=== PATIENT | male | born 1940 | race Caucasian/White ===

== ENCOUNTER → 2017-07-08 | Outpatient (CLI) | payer OTHER, BC ==
[~2017-07-08] VITALS: Ht 182.9 cm; Wt 99.8 kg
[~2017-07-08] MED LIST: ACETAMINOPHEN325 M1 PO; ASPIRIN EC325 M1 PO; ASPIRIN81 M2 PO; B-121000 MCG PO; BRILINTA90 MG PO; BYSTOLIC 5 MG5 M1 PO; COQ-10100 MG PO; COQ-1030 MG; COUMADIN 5 MG TA5 M1 PO; CRESTOR10 MG PO; DHEA25 M1 PO; DIOVAN 80 MG TA80 M1 PO; DIOVAN HCT 80-1 EACH PO; DIOVAN40 MG PO; DULCOLAX STOOL100 MG PO; FISH OIL 1,0001 EAC5 PO; GLUCOSAMINE CH1 EAC7 PO; GLYCOLAX POWDER17 G1 PO; HYDROCODON-ACE1 EAC7 PO; I-CAPS AREDS S1 EACH PO; ICAPS TABLET1 EACH PO; LIVALO4 MG PO; LOPRESSOR100 MG PO; NITROSTAT0.4 MG SL; NYSTATIN-TRIAMC15 GM; OMEGA 3 FISH O1 EACH PO; PACERONE 200 M200 M1 PO; PERCOCET 5-3251 EACH PO; PHISOHEX148 ML TP; PRILOSEC 20 MG20 MG PO; PROBIOTIC1 EAC1 PO; RESVERATROL; SENOKOT-S1 TA1 PO; TOPROL XL25 MG PO; TUMERIC; UNICOMPLEX M TA1 TA1 PO; VITAMIN B-1000.4 MG PO; ZOCOR 20 MG TAB20 M1
--- NOTE | ~2017-07-08 | S ---
[facility] [address] [place] [address] SURGICAL PATH RPT PROCEDURE Name: AUDRA KEE GENE Room #: REG LIZETH Mendiola#: [id number] Admission: 07/08/17 Date of : 42 Discharge: Report #: [id number] Path Case #: [id number] PATHOLOGY REPORT DRAFT COLLECTION DATE: 07/08/2017 RECEIVED DATE: 07/09/2017 SPECIMEN(S) RECEIVED: A.Bx of polyp at distal transverse colon x2
--- NOTE | ~2017-07-08 | P ---
[facility] [place] [address] PROCEDURE REPORT Name: [place]DRA [place]EE [facility] [place]: [place] [facility]#: [id number] Admission: 07/08/17 Attend Phys: Earl Victor MD Discharge: Date of : 42 Report #: [id number] THIS REPORT FOR: //name// CC: Bala Victor BRIEF HISTORY: The patient is a 76-year-old male with history of colon polyps. He is here for high-risk screening colonoscopy due to his history of polyps. PREOPERATIVE DIAGNOSIS: High-risk screening colonoscopy. POSTOPERATIVE DIAGNOSIS: Diminutive polyps, distal transverse colon, times 2. MEDICATIONS: Deep sedation with propofol. SPECIMEN: Polyps, distal transverse colon, times 2. ESTIMATED BLOOD LOSS: 3 mL. PROCEDURE: Colonoscopy to the cecum and terminal ileum with biopsy. FINDINGS: Prior to propofol sedation, procedure of colonoscopy was discussed with the patient as well as potential risks and its complications. He indicates he understands and desires to proceed. DESCRIPTION OF PROCEDURE: With the patient in the left lateral decubitus position, digital examination was completed, which revealed no abnormalities. Subsequently, the [employer] video colonoscope was introduced into the rectum and advanced under direct vision to the cecum. Done with a minimal difficulty. The cecum was identified by the ileocecal valve and the appendiceal orifice. I was able to visualize the distal segment of terminal ileum, which was inspected and noted to be unremarkable. At that point, the scope was slowly withdrawn, and careful circumferential views were obtained including retroflexion of the scope in the ascending colon. Upon slow withdrawal of the scope, the prep was noted to be excellent. Mucosa within normal limits, normal vascular pattern, normal light reflex. No abnormalities were noted until the scope was withdrawn in the distal transverse colon, and 2 diminutive polyps were seen and removed by biopsy. The scope was further withdrawn, and no additional polypoid lesions were seen. The remainder of the exam was completely normal. Scope was withdrawn in the rectum. Upon retroflexion, no abnormalities were seen. Scope was withdrawn. The patient tolerated the procedure well. CONDITION OF THE PATIENT UPON DISCHARGE: Following procedure, the patient was drowsy, aroused and conversant and will be discharged to home when fully ambulatory. [address] [address] PROCEDURE REPORT Name: AUDRA KEE [facility] [place] #: REG [facility].#: [id number] Admission: 07/08/17 Attend Phys: Earl Victor MD Discharge: Date of : 42 Report #: [id number] INSTRUCTIONS TO THE PATIENT AND FAMILY AT THE TIME OF DISCHARGE: The patient has a history of colon polyps. He had 2 small polyps removed today. We will follow up on the pathology report. In summary, if one or both polyps are adenomas, he should return in 5 years. If both are hyperplastic, then 10 years would be typical recommendation. However, in 10 years, he will be 86 years old, and at that point in time, the benefit of routine surveillance colonoscopy may be minimal. However, if the patient's health is excellent and his longevity horizon is 7-10 years, colonoscopy could be considered at age 86 for high-risk screening. He will return to Dr. Bala Rodríguez as needed. Last colonoscopy was approximately 5 years ago. Withdrawal time from the cecum was 12 minutes 45 seconds. <ELECTRONICALLY SIGNED> By: Earl Victor MD 07/09/17 2049 1007 [id number] Earl Victor MD /nt
== END | disposition home or self-care (01) ==
LOC: GI 08:08
DX: Z09 Encounter for follow-up examination after completed treatment for conditions other than malignant neoplasm (principal); Z87.19 Personal history of other diseases of the digestive system; D12.3 Benign neoplasm of transverse colon; I10 Essential (primary) hypertension; E78.00 Pure hypercholesterolemia, unspecified; Z95.1 Presence of aortocoronary bypass graft; Z98.890 Other specified postprocedural states; K21.9 Gastro-esophageal reflux disease without esophagitis; G47.33 Obstructive sleep apnea (adult) (pediatric)
CPT/HCPCS: 62110; 62900

== ENCOUNTER → 2018-07-26 | Outpatient (CLI) | payer OTHER, BC | LOC: NUC 06:48 | DX: I25.9 Chronic ischemic heart disease, unspecified (principal); R07.9 Chest pain, unspecified ==

== ENCOUNTER 2018-08-01 06:41 | Observation (INO) | payer OTHER, BC ==
[~2018-08-01] VITALS: Ht 182.9 cm; Wt 102.1 kg
--- NOTE | ~2018-08-01 | EKG ---
[address] [address] ELECTROCARDIOGRAM REPORT Name: AUDRA KEE Room #: 201-P [facility] M.R.#: [id number] Admission: 08/01/18 Attend Phys: Jan Douglass MD, Discharge: Date of : 42 Report #: [id number] THIS REPORT FOR: //name// [facility] Test Date: 2018-08-02 Test Time: 08:10:05 Pat Name: AUDRA KEE Department: Room: 201 P Gender: M Sales And Marketing Specialist: GIANNI : 1940 Requested By: Arlyn Jack Order Number: [id number] MD: Ky Batres Measurements Intervals [place] Rate: 67 P: 53 MS: 172 QRS: 20 QRSD: 121 T: 46 QT: 438 QTc: 463 Interpretive Statements Sinus rhythm Cannot rule out inferior infarct Compared to ECG 02/01/2015 18:17:38 No significant change was found Electronically Signed On 08-02-2018 8:23:17 CDT by Ky Batres [email or web address] <ELECTRONICALLY SIGNED> By: Ky Batres MD, [facility] 08/02/1823 9 Ky Batres MD, [facility] /EPI
--- NOTE | ~2018-08-01 | CATHLAB ---
[facility] [address] [place] [address] INVASIVE PROCEDURE REPORT Name: AUDRA KEE [facility] Room #: 201-P [facility] IN .R.#: [id number] Admission: 08/01/18 Attend Phys: Jan Douglass, Discharge: 08/02/18 Date of : 42 Date of Service: 08/02/18 1454 Report #: [id number] THIS REPORT FOR: //name// APPROVED REPORT Study performed: 08/01/2018 07:30:40 Patient Details Patient Status: Out-Patient Room #: The patient is a 77 year-old male Event Personnel Jan Douglass Meat Packer, Alissa Evans RN RN, Sigrid Asher RTR, Eduardo Styles Christine RTR Monitor Procedures Performed Art Access - R femoral artery* Hemostasis w/ Mynx 28011 Initial Mod Sed Same Phys/QHP Gr5y 010652 50946 Mod Sed Same Phys/QHP Ea 681081 Abdominal Aortography 737603 Left Heart Cath Coronaries, Bypass Grafts 6552821 LHCCORCABG JEAN[place]ERRE Place w/wo Plasty Single OM 913961 Indication Positive stress test, Chest pain Procedure Narrative The Right Groin^ was infiltrated with 1% Lidocaine subcutaneous anesthesia. A PINNACLE 6FR Sheath #[id number] sheath was inserted into the RFA 6FR^. Coronary angiography was performed using coronary diagnostic catheters. The right coronary system was accessed and visualized with a JR4 catheter. The left coronary system was accessed and visualized with a JL4 catheter. The left ventricle was accessed and visualized with a PIGTAIL catheter. Left ventriculogram was performed in 30 degree projection. An aortogram of the abdominal aorta was performed. Closure device was deployed with a 6 Fr MYNXGRIP 6/7F #[id number]. The patient tolerated the procedure well and there were no complications associated with the procedure. There was no hematoma. Intraoperative Conscious Sedation Sedation start time: 08:49 Case end Time: 09:34 Fentanyl 25 mcg Versed 1.5 mg [facility] [address] [place] [address] INVASIVE PROCEDURE REPORT Name: AUDRA KEE [facility] Room #: 201-P [facility] IN M.R.#: [id number] Admission: 08/01/18 Attend Phys: Jan Douglass, Discharge: 08/02/18 Date of : 42 Date of Service: 08/02/18 1454 Report #: [id number] Fluoro Time: 7.35 minutes Dose: DAP 18395.70 cGycm2 1486 mGy Contrast Type and Amount: Omnipaque 240 ml Hemodynamics The aortic pressure is 146/75 mmHg with a mean of 103 mmHg. The left ventricular pressure is 169/10 mmHg with a mean of mmHg. The left ventricular end diastolic pressure is 35 mmHg. PCI Technique Lesion Percutaneous coronary intervention was performed on the first obtuse marginal branch segment. A LAUNCHER 6FR EBU 4 #[id number] Guide Catheter was used to engage the ostium. A Luge Wire .014 x 182CM #[id number] Interventional Guidewire was used to cross the lesion. BALLOON DILATION A Balloon catheter Sprinter OTW 2.25 x 12 #[id number] was inserted and inflated up to 6.00atm for 28seconds. Additional Inflation: 8.00atm for 32seconds. STENT DEPLOYMENT A drug-eluting stent RESOLUTE HUNG OTW 2.25 X 12 #[id number] was inserted and inflated up to 14.00atm for 29seconds. Additional Inflation: 16.00atm for 29seconds. Conclusion #1 successful PTCA stent of a subtotal proximal first OM branch with a 2.25 x 12 [place] drug-eluting stent postdilated 2.4 mm yielding 0% residual and GEORGI grade 3 flow #2 left main free of disease giving rise to LAD and circumflex #3 LAD with a moderate lesion in the proximal segment subsequent he bypassed by a GRIJALVA graft #4 GRIJALVA to LAD is intact with minimal irregularity this extends to the apex #5 the second OM branch is widely patent the distal circumflex occludes proximally. #6 there is a graft to a small diagonal which remains widely patent and then to the circumflex which fills the circumflex distally and the distal OM segment #7 the rincon right coronary is mild disease previously placed proximal stent is patent #8 the SVG to the right is occluded #9 normal left ventricular size and systolic function EF 50-55% #10 abdominal aorta is intact with no evidence of aneurysm renal arteries appear to be widely patent. [facility] [place] [address] INVASIVE PROCEDURE REPORT Name: AUDRA KEE GENE Room #: 201-P [facility] IN M.R.#: [id number] Admission: 08/01/18 Attend Phys: Jan Douglass, Discharge: 08/02/18 Date of : 42 Date of Service: 08/02/18 1454 Report #: [id number] Recommendations and plan: Continue aggressive risk factor modification. Dual antiplatelet therapy will continue at least one year in light of recent drug-eluting stent placed today. Patient transfer to CCU in stable condition follow post stent protocol <ELECTRONICALLY SIGNED> By: Jan Douglass MD, FACC 08/02/18 1454 1454 53 Jan Douglass MD, FACC /INF
[2018-08-01 07:03] VITALS: BP 149/70
[2018-08-01] MEDS ORDERED: UNICOMPLEX M TA1 TA1 PO (07:05)
[2018-08-01] MEDS ORDERED: COENZYME Q10100 MG PO (07:06)
[2018-08-01] MEDS ORDERED: NEPHROCAPS SOFT1 CAP PO (07:06)
[2018-08-01] MEDS ORDERED: CRESTOR20 MG PO (07:06)
[2018-08-01 07:32] LABS: HEMATOCRIT 43.1 % (42.0-52.0); HEMOGLOBIN 14.8 gm/dL (14.0-18.0); MCH 32.5 pg (26.0-34.0); MCHC 34.3 g/dL (28.0-37.0); MCV 94.7 fL (80.0-100.0); RBC 4.55 mil/uL (4.50-6.00)
[2018-08-01 07:46] LABS: CALCIUM 8.8 mg/dL (8.5-10.1); POTASSIUM 4.3 mmol/L (3.5-5.1)
[2018-08-01 11:09] VITALS: BP 139/75
[2018-08-01 17:12] VITALS: BP 1236/72
[2018-08-01 19:22] VITALS: BP 128/66
[2018-08-02 03:05] LABS: APTT 24.7 Seconds (24.5-32.8)
[2018-08-02 03:06] LABS: HEMATOCRIT 44.3 % (42.0-52.0); HEMOGLOBIN 14.7 gm/dL (14.0-18.0); MCH 31.4 pg (26.0-34.0); MCHC 33.1 g/dL (28.0-37.0); MCV 94.9 fL (80.0-100.0); RBC 4.67 mil/uL (4.50-6.00); RDW 13.9 % (10.5-14.5)
[2018-08-02 03:11] LABS: CALCIUM 8.6 mg/dL (8.5-10.1); CREATININE 0.8 mg/dL (0.7-1.3); POTASSIUM 4.4 mmol/L (3.5-5.1)
[2018-08-02 04:15] VITALS: BP 132/79
[2018-08-02] MEDS ORDERED: EFFIENT10 MG PO (07:21)
[2018-08-02] MEDS ORDERED: ASPIRIN325 PO (07:22)
[2018-08-02 07:45] VITALS: BP 145/80
[2018-08-02 09:44] VITALS: BP 145/80
== END 2018-08-02 10:25 | disposition home or self-care (01) ==
LOC: CATH 06:41 → 2N 10:47 → CATH 14:37 → 2N 08-02 10:25
PROVIDERS: Internal Medicine Cardiovascular Disease; Nurse Practitioner Adult Health
DX: I25.10 Atherosclerotic heart disease of native coronary artery without angina pectoris (principal); I10 Essential (primary) hypertension; E78.5 Hyperlipidemia, unspecified; I65.29 Occlusion and stenosis of unspecified carotid artery; Z95.5 Presence of coronary angioplasty implant and graft

== ENCOUNTER 2018-12-15 06:45 | Observation (INO) | payer OTHER, BC ==
[2018-12-15] VITALS (14 sets, daily range): BP systolic 136–161; BP diastolic 64–93
[~2018-12-15] VITALS: Ht 182.9 cm; Wt 102.5 kg
[~2018-12-15 06:45] MED LIST changes: +ASPIRIN325 PO; +COENZYME Q10100 MG PO; +CRESTOR20 MG PO; +EFFIENT10 MG PO; +NEPHROCAPS SOFT1 CAP PO
[2018-12-15] MEDS ORDERED: VITAMIN D-32000 UNIT PO (07:07)
[2018-12-15] MEDS ORDERED: ASPIR 8181 MG PO (07:07)
[2018-12-15] MEDS ORDERED: VITAMIN B-12500 MCG PO (07:08)
[2018-12-15] MEDS ORDERED: DHEA50 MG PO (07:08)
--- NOTE | 2018-12-15 12:02 | NUR ---
ASSUMED CARE OF PT AT 0945. R GROIN SITE CDI/NO HEMATOMA. NO PAIN REPORTED BY PT. PT LAYING FLAT IN BED WITH CALL LIGHT IN REACH. BEDREST FOR 3 HOURS. WILL CONTINUE TO MONITOR. VSS.
--- NOTE | 2018-12-15 13:12 | CATHLAB ---
[facility] [place] [address] INVASIVE PROCEDURE REPORT Name: AUDRA [place]EE [facility] [place] #: 213-P ADM [place] M.R.#: [id number] ������������� Admission: 12/15/18 ������������� Attend Phys: Jan Douglass, Discharge: ��� ������������� ��� Date of : 42 Date of Service: 12/15/18 1312 �� Report #: [id number] �������� ��������������������������������������������[id number] THIS REPORT FOR: //name// APPROVED REPORT Study performed: 12/15/2018 07:40:03 Patient Details Patient Status: Out-Patient Room #: The patient is a 78 year-old male Event Personnel Jan Douglass Agriculture Scientist, Cyril Dale RN RN, Sigrid Asher RTR, MIREILLE Alcaraz, Malika Heredia Monitor, Sadie Gunderson Monitor Procedures Performed Art Access - R femoral artery* 93561 Initial Mod Sed Same Phys/QHP Gr5y 250438 12776 Mod Sed Same Phys/QHP Ea 524967 Left Heart Cath Coronaries, Bypass Grafts 3855127 LHCCORCABG [address] Place w/wo Plasty Single OM 991626 Hemostasis w/ Mynx Indication Chest pain Procedure Narrative The patient was brought electively to the Cardiac Catheterization Laboratory and was prepped and draped in a sterile manner. The Right Groin^ was infiltrated with 1% Lidocaine subcutaneous anesthesia. A PINNACLE 6FR TIF Sheath #[id number] sheath was inserted into the RFA^. Coronary angiography was performed using coronary diagnostic catheters. The right coronary system was accessed and visualized with a JR 4 catheter. The left coronary system was accessed and visualized with a JL 4 catheter. The left ventricle was accessed and visualized with a Pigtail catheter. Left ventriculogram was performed in KAUR projection. Closure device was deployed with a 6 Fr Mynx. The patient tolerated the procedure well and there were no complications associated with the procedure. There was no hematoma. Intraoperative Conscious Sedation Sedation start time: 08:11 Case end Time: 09:10 Fentanyl 75 mcg Versed 2 mg Fluoro Time: 10.40 minutes [facility] [address] [place] [address] INVASIVE PROCEDURE REPORT Name: AUDRA KEE [facility] [place] #: 213-P [facility] IN ..#: [id number] ������������� Admission: 12/15/18 ������������� Attend Phys: Jan Douglass, Discharge: ��� ������������� ��� Date of : 42 Date of Service: 12/15/18 1312 �� Report #: [id number] �������� ��������������������������������������������[id number] Dose: DAP 68392.00 cGycm2 2405 mGy Contrast Type and Amount: Omnipaque 205 ml Hemodynamics The aortic pressure is 178/80 mmHg with a mean of 104 mmHg. The left ventricular pressure is 182/16 mmHg with a mean of mmHg. The left ventricular end diastolic pressure is 35 mmHg. PCI Technique Lesion Percutaneous coronary intervention was performed on the first obtuse marginal branch segment. A LAUNCHER 6FR EBU 4 #222761 Guide Catheter was used to engage the ostium. A Luge Wire .014 x 182CM #[id number] Interventional Guidewire was used to cross the lesion. BALLOON DILATION A Balloon catheter TREK NC OTW 2.5 X 12 #[id number] was inserted and inflated up to 12.00atm for 20seconds. Additional Inflation: 22.00atm for 27seconds. Additional Inflation: 24.00atm for 47seconds. STENT DEPLOYMENT A drug-eluting stent XIENCE KASHIF RX 2.75 X 8 #[id number] was inserted and inflated up to 8.00atm for 32seconds. Additional Inflation: 8.00atm for 25seconds. Conclusion #1 successful PTCA stent of high-grade in-stent restenosis and a first OM branch attempted to dilate with larger noncompliant balloon still haziness and proximal stent Godwin stented with a 2.75 x 8 see era stent post I to 3.0 mm GEORGI grade 3 flow #2 short left main giving rise to an LAD which is occluded in the proximal vessel and a circumflex system with the second OM remain widely patent #3 GRIJALVA to an LAD is widely patent no occlusive disease and mild irregularity in the LAD is extends around the apex #4 dominant right with mild disease no occlusive disease #5 a vein graft appears widely patent may of been a radial graft giving rise to a small diagonal and a distal OM system which is widely patent the circumflex is occluded proximal to this graft #6 normal left ventricular size and systolic function EF 55% Recommendations and plan: Continue aggressive risk factor modification. Dual antiplatelet therapy to continue at least one year [facility] [place] [address] INVASIVE PROCEDURE REPORT Name: AUDRA KEE GENE Room #: 213-P [facility] IN M.R.#: [id number] ������������� Admission: 12/15/18 ������������� Attend Phys: Jan Douglass, Discharge: ��� ������������� ��� Date of : 42 Date of Service: 12/15/181311 �� Report #: [id number] �������� ��������������������������������������������[id number] for in-stent restenosis and first OM branch with a second stent placed ��������������������������������������������� <ELECTRONICALLY SIGNED> ���������������������������������������� By: Jan Douglass MD, FACC ��������������������������������������������� 12/15/181311 11 11 Jan Douglass MD, FACC /INF
[2018-12-16] VITALS (7 sets, daily range): BP systolic 124–146; BP diastolic 57–72
--- NOTE | 2018-12-16 03:40 | NUR ---
ASSESSMENT DOCUMENTED.PT BEEN RESTING IN NO ACUTE DISTRESS.A/OX4.S/P CARDIAC RENEE WITH INTERVENTIONS.VSS.RIGHT GROIN W/O HEMATOMA.DRESSING CDI.PERIPHERAL PULSES 2/2.UP AD JAIRO TO BR.PT TO DSICHARGE TO HOME TODAY.WILL CONT TO MONITOR PER POC.
[2018-12-16 08:18] LABS: HEMATOCRIT 45.3 % (42.0-52.0); MCH 31.9 pg (26.0-34.0); MCHC 33.1 g/dL (28.0-37.0); MCV 96.5 fL (80.0-100.0); RBC 4.7 mil/uL (4.50-6.00); RDW 14.4 % (10.5-14.5)
[2018-12-16 08:46] LABS: CALCIUM 9.1 mg/dL (8.5-10.1); CREATININE 0.7 mg/dL (0.7-1.3); POTASSIUM 4.3 mmol/L (3.5-5.1); TROPONIN-I 0.12 ng/mL (<0.06)
--- NOTE | 2018-12-16 09:13 | EKG ---
[place] [address] [address] [place] [address] ELECTROCARDIOGRAM REPORT Name: AUDRA KEE CORRINE Room #: 213-P [facility] M.R.#: [id number] ������������������ Admission: 12/15/18 ������������������ Attend Phys: Jan Douglass MD, Discharge: ������������������ Date of : 42 Report #: [id number] ����������������������������������������������������������������� [id number] THIS REPORT FOR: //name// [facility] Test Date: 2018-12-16 Test Time: 08:08:36 Pat Name: AUDRA KEE Department: Room: 213 P Gender: M Propeller Engineer: GIANNI : 1940 Requested By: Arlyn Miller Order Number: [id number] MD: Ky Batres Measurements Intervals [place] Rate: 75 P: 22 ME: 164 QRS: 9 QRSD: 134 T: 47 QT: 434 QTc: 485 Interpretive Statements Sinus rhythm Nonspecific T wave abnormality Compared to ECG 08/02/2018 08:10:05 No significant change was found Electronically Signed On 12-16-2018 9:13:19 NITROGLYCERIN SEPARATOR OPERATOR by Ky Batres [email or web address] ��������������������������������������������� <ELECTRONICALLY SIGNED> ���������������������������������������� By: Ky Batres MD, [facility] ��������������������������������������������� 12/16/1813 7 7 Ky Batres MD, [facility] /EPI
== END 2018-12-16 13:15 | disposition home or self-care (01) ==
LOC: CATH 06:45 → 2N 08:38 → ENTRNSPT 12-16 11:52 → EDTRNSPTSTS 12-16 11:54 → 2N 12-16 13:15
PROVIDERS: Nurse Practitioner Adult Health; ADMIT Internal Medicine Cardiovascular Disease
DX: I25.10 Atherosclerotic heart disease of native coronary artery without angina pectoris (principal); I10 Essential (primary) hypertension; E78.5 Hyperlipidemia, unspecified; K21.9 Gastro-esophageal reflux disease without esophagitis; Z95.1 Presence of aortocoronary bypass graft; Z79.899 Other long term (current) drug therapy